=== PATIENT | male | born 1970 | race Caucasian/White ===

== ENCOUNTER 2017-06-11 11:01 | Emergency (ER) | payer OTHER ==
[~2017-06-11] VITALS: Ht 172.7 cm; Wt 80.9 kg
[~2017-06-11 11:01] MED LIST: OMEP20CA4 PO
[2017-06-11 15:10] VITALS: BP 124/88
== END 2017-06-11 15:18 | disposition home or self-care (01) ==
LOC: EMS 11:03
DX: S83.412A Sprain of medial collateral ligament of left knee, initial encounter (principal); K21.9 Gastro-esophageal reflux disease without esophagitis; X50.1XXA Overexertion from prolonged static or awkward postures, initial encounter; Y93.89 Activity, other specified; Y92.89 Other specified places as the place of occurrence of the external cause; Y99.8 Other external cause status
CPT/HCPCS: 99284

== ENCOUNTER 2023-11-19 08:21 | Emergency (ER) | payer OTHER ==
[~2023-11-19] VITALS: Ht 175.3 cm; Wt 81.8 kg
[2023-11-19 08:28] VITALS: TEMP 98.1
[2023-11-19] MEDS ORDERED: SODIUM CHLORIDE 0.9% 1,000 ML IV ONE (09:00)
[2023-11-19] MEDS ORDERED: KETOROLAC TROMETHAMINE 30 MG/ML VIAL IVP ONE (09:00)
[2023-11-19] MEDS ORDERED: DIAZEPAM 5 MG/ML 2 ML SYRINGE IVP ONE (09:00)
[2023-11-19] MEDS ORDERED: LIDOCAINE 5% TRANSDERMAL PATCH TD ONE (09:15)
[2023-11-19 12:45] VITALS: BP 145/89; PULSE 75; RESP 16
[2023-11-19] MEDS ORDERED: METH-659 PO (12:52)
[2023-11-19] MEDS ORDERED: IBUP-1492 PO (12:53)
[2023-11-19] MEDS ORDERED: LIDO1ADH23 TP (12:54)
== END 2023-11-19 13:47 | disposition home or self-care (01) ==
LOC: EMS 08:21
DX: S29.012A Strain of muscle and tendon of back wall of thorax, initial encounter (principal); S13.4XXA Sprain of ligaments of cervical spine, initial encounter; M75.101 Unspecified rotator cuff tear or rupture of right shoulder, not specified as traumatic; G62.9 Polyneuropathy, unspecified; X58.XXXA Exposure to other specified factors, initial encounter; Y93.89 Activity, other specified; Y92.89 Other specified places as the place of occurrence of the external cause; Y99.8 Other external cause status
CPT/HCPCS: 99285; 96374; 72125; 96361; 96375; J1885 ×2; J7030